=== PATIENT | male | born 1955 | race Caucasian/White ===

== ENCOUNTER → 2020-02-06 | Outpatient (CLI) | payer BC | END | disposition home or self-care (01) | LOC: LABWHC1 08:20 | PROVIDERS: ATTEND Surgery | DX: C16.9 Malignant neoplasm of stomach, unspecified (principal) | CPT/HCPCS: U0003; C9803 ==

== ENCOUNTER → 2021-03-15 | Outpatient (CLI) | payer MEDICARE ==
[2021-03-15 14:43] VITALS: BP 148/71; PULSE 56; RESP 18; TEMP 98.1; BMI 29.1
--- NOTE | 2021-03-15 14:47 | P.HPBAR ---
Bariatric H&P - History & Physicial H&P Date: 03/15/21 History & Physicial: Visit/CC: initial visit Patient initial contact: Initial weight: Initial weight in pounds: Height: 5 ft 7.5 in Initial BMI: Last weight: Current weight: 85.729 kg Current weight in pounds: 189.00 Current BMI: 29.1 [place] body weight (based on NIH guidelines): 68.492 kg Excess body weight loss: The patient is a 65 year-old M who presents for Bariatric Assessment. Patient presents today for panniculus. He has had appears history of total gastrectomy for stomach cancer. He states he lost between 60 and 70 pounds. He has developed a small pannus. He wishes to have this removed. Past Medical History Past Medical History: Diabetes Mellitus, Hypertension, Sleep Apnea/CPAP/BIPAP Additional Past Medical History / Comment(s): palpitations. stomach cancer 01/2020. History of Any Multi-Drug Resistant Organisms: None Reported Past Surgical History: Adenoidectomy, Bowel Resection, Joint Replacement, Tonsillectomy Additional Past Surgical History / Comment(s): broken ankle with screws/plates . left rotator cuff . stomach removal d/t cancer february 10, 2020. Past Anesthesia/Blood Transfusion Reactions: No Reported Reaction Past Psychological History: No Psychological Hx Reported Smoking Status: Former smoker Past Alcohol Use History: None Reported Past Drug Use History: None Reported Surgical - Exam Vital Signs Temp Pulse Resp BP 98.1 F 56 L 18 148/71 03/15/21 14:33 03/15/21 14:33 03/15/21 14:33 03/15/21 14:33 - General well developed, well nourished, no distress - Eyes PERRL - ENT normal pinna - Neck no masses - Respiratory normal expansion - Cardiovascular Rhythm: regular - Abdomen Abdomen: soft, non tender - Integumentary Well-formed panniculus. There is no evidence of any skin irritations today. Bariatric Assessment & Plan Plan: Panniculus related to weight loss. Patient will attempt to obtain insurance physician for panniculectomy. Bariatric Checklist Checklist: Plan: Checklist: EGD: 1. Hiatal hernia: 2. H. Pylori: HgbA1c: Vitamin D: Smoking: Primary care physician referral: Dr. Reynolds ([place]) Psychiatry clearance: Cardiology clearance: Sleep study: Diet journal: VTE risk score: VTE risk level: Rehab needs at discharge:
== END ==
LOC: BARWHC3 13:51
PROVIDERS: ATTEND Surgery
DX: Z01.818 Encounter for other preprocedural examination (principal); E11.9 Type 2 diabetes mellitus without complications; I10 Essential (primary) hypertension; Z87.891 Personal history of nicotine dependence; Z90.3 Acquired absence of stomach [part of]
CPT/HCPCS: 99203